=== PATIENT | male | born 1990 | race Caucasian/White ===

== ENCOUNTER → 2025-04-21 | Emergency (ER) | payer SELFPAY ==
[~2025-04-21] MED LIST: FURO-151 MT; HYDR-4009 PO; MULT-624 PO; PROT40 MT; SPIR50TA5 MT; THIA100T88 PO
== END ==
LOC: ER 12:44
DX: Z00.8 Encounter for other general examination (principal); Z53.21 Procedure and treatment not carried out due to patient leaving prior to being seen by health care provider